=== PATIENT | female | born 1985 | race Caucasian/White ===

== ENCOUNTER 2017-08-12 23:44 | Emergency (ER) | payer OTHER ==
[~2017-08-12] VITALS: Ht 157.5 cm; Wt 111.1 kg
--- NOTE | 2017-08-13 00:22 | ED PSYCHIATRIC COMPLAINT ---
See Addendum History of Present Illness General Chief Complaint: Psychiatric Related Complaint Stated Complaint: SI Source: patient Exam Limitations: no limitations Vital Signs & Intake/Output Vital Signs & Intake/Output Vital Signs Date Time Temp Pulse Resp B/P B/P Pulse O2 O2 Flow FiO2 Mean Ox Delivery Rate 08/13 2217 98.7 94 16 154/73 100 Room Air 08/13 2028 98.4 87 18 161/74 99 Room Air 08/13 1859 98.3 98 18 124/72 98 Room Air 08/13 1522 98.4 08/13 1107 98.4 106 16 134/60 94 Room Air 08/13 0845 99.5 90 20 150/68 97 Room Air 08/13 0633 99.9 109 20 133/54 97 Room Air ED Intake and Output 08/14 0000 08/13 1200 Intake Total 0 Output Total Balance 0 Intake, Oral 0 Patient 245 lb Weight Triage Note: 31YO FEMALE TO TRIAGE W/CO FEELING DEPRESSED, SUICIDAL THOUGHTS OUR HER PARENTS ARE GOING ON A TRIP AND SHE DOESN'T WANT TO BE ALONE. STATES SHE IS [id number] W/MEDS. Triage Nurses Notes Reviewed? yes Onset: Gradual Duration: week(s):, waxing and waning Timing: recent history Severity: moderate, severe Associated Symptoms: suicidal ideation : No Patient currently breastfeeds: No HPI: 31yo woman h/o fibromyalgia, depression x many years, presents in company of a friend with worsening depression. The patient states that her parents are going on a trip for 10 days. "I am never alone... I got afraid." Her friend states that she verbalized becoming more suicidal. "She would get into a car in the garage and turn on the ignition." She denies drugs, but notes drinking alcohol while alone. She denies hallucinations, drug abuse. (Godwin SALINAS,Nicko Luna) Allergies Coded Allergies: bupropion (Mild, MAKES HER CRY 08/13/17) Reconcile Medications Amitriptyline HCl 10 MG TABLET 2 TAB PO QPM FIBROMYALGIA/VILLANUEVA (Reported) Calcium Carbonate/Vitamin D3 (Calcium 500 + D Tablet) (Unknown Strength) TABLET (Unknown Dose) PO DAILY SUPPLEMENT (Reported) Cholecalciferol (Vitamin D3) (Vitamin D) (Unknown Strength) CAPSULE (Unknown Dose) PO DAILY SUPPLEMENT (Reported) Cyclobenzaprine HCl 5 MG TABLET 1 TAB PO PRN MUSCLE SPASMS (Reported) Docusate Sodium (Colace) 100 MG CAPSULE 1 CAP PO BID STOOL SOFTENER (Reported ) Duloxetine HCl 60 MG CAPSULE.DR 1 CAP PO DAILY MENTAL HEALTH (Reported) Lisdexamfetamine Dimesylate (Vyvanse) 10 MG CAPSULE 1 CAP PO DAILY ADD/BINGE EATING (Reported) Multiple Vitamin (Multivitamins) 1 EACH TABLET 1 TAB PO DAILY SUPPLEMENT ( Reported) Naproxen 500 MG TABLET 1 TAB PO BID PRN PAIN/INFLAMMATION (Reported) Norethindrone-E.estradiol-Iron (Junel Fe 1 MG-20 Mcg Tablet) 1 MG-20 MCG (21)/75 MG (7) TABLET 1 TAB PO DAILY CONTROL (Reported) Psyllium Hydrophylic Muciloid (Metamucil Packet) (Unknown Strength) POWD.PACK 1 PAC PO BID GI (Reported) (Khushboo SALINAS,Bakari) Past History Travel History Traveled to [place] past 21 day No Medical History Any Pertinent Medical History? 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 No (Godwin SALINAS,Nicko Luna) Review of Systems Review of Systems Constitutional: Reports: no symptoms. EENTM: Reports: no symptoms. Respiratory: Reports: no symptoms. Cardiovascular: Reports: no symptoms. GI: Reports: no symptoms. Genitourinary: Reports: no symptoms. Musculoskeletal: Reports: no symptoms. Skin: Reports: no symptoms. Neurological/Psychological: Reports: no symptoms. Hematologic/Endocrine: Reports: no symptoms. Immunologic/Allergic: Reports: no symptoms. All Other Systems: Reviewed and Negative (Nicko Connelly MD) Physical Exam Physical Exam General Appearance: well developed/nourished, mild distress Head: atraumatic Eyes: Bilateral: PERRL, EOMI. Ears, Nose, Throat: normal pharynx, normal ENT inspection, hearing grossly normal Neck: normal inspection, supple Respiratory: normal breath sounds Cardiovascular: regular rate/rhythm Gastrointestinal: soft, non-tender Extremities: normal range of motion Neurological/Psychiatric: no motor/sensory deficits, anxious, oriented x 3, tearful Appearance/Memory/Insight: appropriate appearance Behavoir/Eye Contact/Speech: avoids eye contact, cooperative Thoughts/Hallucinations: no apparent hallucination Skin: intact, normal color, warm/dry SAD PERSONS SAD PERSONS Response Value Depression/Hopelessness? yes 2 Rational Thinking Loss? yes 2 Single//? yes 1 Organized/Serious Attempt yes 2 Social Support? has support 0 Total 7 SAD PERSONS Done? yes (Godwin SALINAS,Nicko Luna) Progress Differential Diagnosis: depression vs other. Plan of Care: Orders Procedure Date/time Status Continuous Observation Monitor 08/13 1900 Active Continuous Observation Monitor 08/13 1500 Active Continuous Observation Monitor 08/13 1100 Active Continuous Observation Monitor 08/13 0700 Active Current Medications Sig/Adam Start time Last Medication Dose Stop Time Status Admin Amitriptyline HCl 10 MG AT BEDTIME 08/13 2200 UNVr 08/13 (Elavil 10 MG Tablet) 2225 Duloxetine HCl 60 MG DAILY 08/13 1000 UNVr 08/13 (Cymbalta) 1003 Acetaminophen 650 MG Q4P PRN 08/13 0115 AC 08/13 (Tylenol) 1822 7:14 PM PATIENT SIGNED OUT TO ME BY DR NUNN. PENDING CRISIS REEVALUTION AND DISPOSITION. (Alyssa Foster MD) Hand-Off Endorsed To: Bakari Nunn MD Endorsed Time: 0700 Pending: consult, labs (Nicko Connelly MD) Hand-Off Endorsed To: Alyssa Foster MD Endorsed Time: 1900 Pending: other (Crisis re-eval in AM) (Bakari Nunn MD) Hand-Off Endorsed To: Bakari Nunn MD Endorsed Time: 0700 Pending: other (INPATIENT BED SEARCH) (Alyssa Foster MD) Departure Departure Disposition: STILL A PATIENT Condition: Stable Departure Forms: Customer Survey General Discharge Information (Nicko Connelly MD) Departure Clinical Impression Primary Impression: Depression with suicidal ideation (Bakari Nunn MD) Departure Clinical Impression Primary Impression: Depression with suicidal ideation (Bakari Nunn MD) Departure Clinical Impression Primary Impression: Depression with suicidal ideation (Bakari Nunn MD)
[2017-08-13 02:20] LABS: ABSOLUTE BASOPHIL COUNT 0 /CUMM (0.0-0.2); ABSOLUTE EOSINOPHIL COUNT 0.1 /CUMM (0.0-0.7); ABSOLUTE GRANULOCYTE CT 7.9 /CUMM (1.4-6.5); ABSOLUTE LYMPH COUNT 3.2 /CUMM (1.2-3.4); ABSOLUTE MONOCYTE COUNT 0.6 /CUMM (0.10-0.60); BASOPHIL % 0.4 % (0.0-2.0); EOSINOPHIL % 1.2 % (0-5); GRANULOCYTE % 66.7 % (42.2-75.2); HEMATOCRIT 38.2 % (37-47); MEAN CORPUSCULAR HGB 28.5 PG (27.0-31.0); MEAN CORPUSCULAR HGB CONC 33.6 G/DL (33.0-37.0); MEAN CORPUSCULAR VOLUME 84.7 FL (81.0-99.0); MEAN PLATELET VOLUME 7.8 FL (7.4-10.4); PLATELET COUNT 402 /CUMM (130-400); RBC DISTRIBUTION WIDTH 13.8 % (11.5-14.5); RED BLOOD CELL CT 4.51 /CUMM (4.20-5.40); WHITE BLOOD CELL COUNT 11.9 /CUMM (4.8-10.8)
--- NOTE | 2017-08-13 11:45 | ED PSYCH CRISIS CONSULTATION ---
See Addendum Crisis Consult Basic Assessment Date of Consult: 08/13/17 Responsible Person/Accompanied By: self/friend Renetat Insurance Authorization: Insurance #1: Insurance name: JOSE Phone number: Policy number: [id number] Group number: Authorization number: ED Provider: Patient's ED Provider: Nicko Connelly MD Primary Care Physician: Patient's PCP: Arti Le MD PCP's Current Psychiatrist: Dr Arti Le PCP Chief Complaint: Psychiatric Related Complaint Patient's Quote: not eating lately. feling tired for weeks Present Illness: Pt is a 31 yo female presenting a [facility] ED early this morning with depressive/SI thoughts. Pt is accompanied by her friend Gabby. Pt reports she lives with her parents and they are leaving today to visit her brother in [place] for 10 days. She reports chronic depression and reached out to her friend because she was afraid to be alone. She reportedly told her friend she had some SI but stated she wouldn't act on it. Her friend reports knowing she's been more down recently on not eating well so brought her to [place] for a psych eval. Pt reports on and off outpatient tx for depression since age 12 but no inpatient of suicide attempt history. She reports currently being involved in On -Line therapy and sees her PCP for Cymbalta prescription. She reports no feeling well past month which she states is typical as she has a seasonal depression component to her depression. She reports not eating well lately and feeling tired for weeks. She reports one episode of clawing her skin in HS otherwise no self-harm episodes. Pt reports prior anti-depressant trials of Prozac, Wellbutrin and celexa. Pt reports recent increase of etoh use (1 glass of wine after work) but denies non-prescribed substance use. She reports working past 7 yrs for [employer] and reports job cuts have made it stressful. She is currently taking college classes and broke off a relationship in the summer and says she is fine with that. She reports mother was diagnosed with cancer about 1 yr ago and that can be a stressor. She reports positive relationship with her parents. Pt presents as alert, cooperative, tearful, anxious and OX3. No presence of thought d/o. Pt insisting she is not a threat to harm self and wants to discharge home. Pt case reviewed with Dr Preciado. Pt will need to be h/o in ED for further observation due to recent SI statements and be reassessed tomorrow morning. Patient's Address: [place] [address] Other Phone Number: Who Do You Live With? Family Family/Informants Interviewed: collateral provided by pt friend Renetta Grady [phone]. She reports pt has a long hx of outpatient tx for depression. She reports no awareness of pt requiring inpatient or making a suicide attempt. She reports pt periodically gets more depressed and is currently having a lot of stress at work. Pt reported to her that she is having SI but wouldn't act on it. She reports if pt is discharged she can stay with pt while parents are away. Allergies - Coded Allergies: bupropion (Mild, MAKES HER CRY 08/13/17) Current Medications - Scheduled Medications Amitriptyline HCl 10 MG TABLET 2 TAB PO QPM FIBROMYALGIA/VILLANUEVA #60 (Reported) Entered as Reported by Shabnam Best on 08/13/17 1343 Calcium Carbonate/Vitamin D3 (Calcium 500 + D Tablet) (Unknown Strength) TABLET (Unknown Dose) PO DAILY SUPPLEMENT (Reported) Entered as Reported by Shabnam Best on 08/13/17 1347 Cholecalciferol (Vitamin D3) (Vitamin D) (Unknown Strength) CAPSULE (Unknown Dose) PO DAILY SUPPLEMENT (Reported) Entered as Reported by Shabnam Best on 08/13/17 1347 Docusate Sodium (Colace) 100 MG CAPSULE 1 CAP PO BID STOOL SOFTENER (Reported ) Entered as Reported by Shabnam Best on 08/13/17 1346 Duloxetine HCl 60 MG CAPSULE. 1 CAP PO DAILY MENTAL HEALTH #30 (Reported) Entered as Reported by Shabnam Best on 08/13/17 1342 Lisdexamfetamine Dimesylate (Vyvanse) 10 MG CAPSULE 1 CAP PO DAILY ADD/BINGE EATING #30 (Reported) Entered as Reported by Shabnam Best on 08/13/17 1345 Multiple Vitamin (Multivitamins) 1 EACH TABLET 1 TAB PO DAILY SUPPLEMENT ( Reported) Entered as Reported by Shabnam Best on 08/13/17 1347 Norethindrone-E.estradiol-Iron (Junel Fe 1 MG-20 Mcg Tablet) 1 MG-20 MCG (21)/75 MG (7) TABLET 1 TAB PO DAILY CONTROL #84 (Reported) Entered as Reported by Shabnam Best on 08/13/17 1345 Psyllium Hydrophylic Muciloid (Metamucil Packet) (Unknown Strength) POWD.PACK 1 PAC PO BID GI (Reported) Entered as Reported by Shabnam Best on 08/13/17 1346 Scheduled PRN Medications Cyclobenzaprine HCl 5 MG TABLET 1 TAB PO PRN MUSCLE SPASMS #30 (Reported) Entered as Reported by Shabnam Best on 08/13/17 1344 Naproxen 500 MG TABLET 1 TAB PO BID PRN PAIN/INFLAMMATION #60 (Reported) Entered as Reported by Shabnam Best on 08/13/17 1344 Laboratory Results: Laboratory Tests 08/13/17 0157: Urine Opiates Screen < 100.00, Methadone Screen 61, Barbiturate Screen < 60, Ur Phencyclidine Scrn < 6.00, Amphetamines Screen < 100, U Benzodiazepines Scrn < 85, Urine Cocaine Screen < 50, Urine Cannabis Screen < 5.00 08/13/17 0147: Anion Gap 16, Estimated GFR > 60, BUN/Creatinine Ratio 15.7, Glucose 141 H, Calcium 9.9, Total Bilirubin 0.3, AST 18, ALT 21, Alkaline Phosphatase 74, Total Protein 7.4, Albumin 4.3, Globulin 3.1, Albumin/Globulin Ratio 1.4, Total Beta HCG NEGATIVE, CBC w Diff NO MAN DIFF REQ, RBC 4.51, MCV 84.7, MCH 28.5, MCHC 33.6, RDW 13.8, MPV 7.8, Gran % 66.7, Lymphocytes % 27.0, Monocytes % 4.7, Eosinophils % 1.2, Basophils % 0.4, Absolute Granulocytes 7.9 H, Absolute Lymphocytes 3.2, Absolute Monocytes 0.6, Absolute Eosinophils 0.1, Absolute Basophils 0, Serum Alcohol < 10.0 (Errol Solorzano LCSW) Past History Past Medical History Neurological: FIBROMYALGIA EENT: NONE Cardiovascular: NONE Respiratory: NONE Gastrointestinal: NONE Hepatic: NONE Renal: NONE Musculoskeletal: NONE Psychiatric: depression Endocrine: NONE 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 Pt aware of treatment needs and attempts to utilize coping skills to lessen depressive episodes Psychiatric Treatment History Psych Treatment Psychiatric Treatment Yes Inpatient Treatment No Outpatient Treatment Yes Location of Treatment Prescribed Emmaalta by PCP. Engages in on-line therapy Reason for Treatment chronic depression Dates of Treatment since age 12 Response to Treatment pt reports about once a yr worsening symptoms but no inpatient or suicide attempt hx Diagnosis by History: Major Depressive D/O Substance Use/Abuse History Drug Use/Abuse Substances Used/Abused Yes Substance Used/Abused Alcohol Last Used yesterday How much used/taken 1 glass of wine How often almost daily For how long more recently Substance Abuse Treatment Substance Abuse Treatment Past Substance Abuse [place] No Inpatient Treatment No Outpatient Treatment No Comments: pt more active recent etoh use. Almost daily 1 glass of wine after work. Pt reports not use of non-prescribed substances. (Errol Solorzano LCSW) Current Mental Status Mental Status Orientation: Person, Place, Situation Affect: Anxious, Depressed Speech: WNL Neuro-vegetative: Appetite Decreased, Energy Decreased, Sleep Disturbance Appearance Appearance- Dress/Hygiene: pt in blue scrubs; tearful; sitting up on bed with good eye contact Behaviors Thought Process: WNL Thought Content: WNL Memory: WNL Insight: Fair SI/HI Risk Assessment Past Suicidal Ideation/Attempts Yes (chronic with no plan or intent) Current Suicidal Ideation/Att No Past Homicidal Ideation/Att: No Current Homicidal Ideation/Attempts No Degree of Intent: Thoughts/No Intent Danger To: Self Risk Factors: high anxiety/distress Lethality Ratin PTSD Checklist PTSD Done? patient declined ED Management Sitter: Yes Restraints: No (Errol Solorzano LCSW) DSM5/PS Stressors/Medical Prob Diagnosis' (DSM 5, Stressors, Medical): Unspecified Depression F32.9 fibramyalgia seasonal depression Current GAF: 35 Comments: pt reports chronic depression but with a seasonal component (tends to be worse in the winter). Pt reports not eating well, feeling tired, (Errol Solorzano LCSW) Departure Disposition Psych Medical Clearance Date: 08/13/17 Medically Cleared at: 0900 Time Started: 0900 Time Ended: 0945 Psychiatrist Consulted: Karen Huitron MD Date Disposition Established: 08/13/17 Time Disposition Established: 1100 Plan for Disposition - Modality: h/o for re-eval Rationale for Disposition: pt will be h/o in ED for further assessment/evaluation due to recent SI and unclear safety plan. Referrals Arti Le MD (PCP/Family) (Rashad CHAPPELL,Errol) Addendum Addendum Patient presented as tearful, anxious and depressed upon meeting for reevaluation. Patient stated she did not want her parents to be at hospital and requested this clinician tell them to leave and "go to [place]" as they planned. It should be noted that patient called her parents to tell them she was in the hospital for depression prior to them getting on their flight, which had them cancel their trip and come to the hospital. Per patient's parents, they believe it is in the patient's best interests to be admitted for an inpatient stay and to not return home to them. Spoke to Dr. Vargas who agrees that patient should be admitted for worsening depression, SI and sucicidal statements. A bed search will be conducted for patient. (Estela PAIZ,[place]) Addendum Crisis re-evaluated pt this shift. She continues to endorse SI and feelings of hopelessness and helplessness. She is aware that inpatient treatment is being pursues at this time. (Nicolasa CHAPPELL,Alessandra) Addendum Parents were in her room, and asked if there was anyway to get her to a hospital in [facility], I expressed to them, we would find her a bed in [place] first before we would have to look in another state, they understood , but did ask for it to be noted. This evening I reassessed pt, and she offers I don;t know how many parents didn' t know I've been telling them for weeks that I was depressed, I haven't been eating I thought they would know. Pt clarifies she is suicidal, although never been admitted to inpatient before, she states she thinks of her life ending often, and ways to . She states I freaked out my friend, all I asked her to do was check on me while my parents were away, and she brought me here, because I made her nervous, by telling about suicide. 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 (Kade CHAPPELL,Nazanin)
[2017-08-13] MEDS ORDERED: DULOXETINE HCL60 MG PO (13:42)
[2017-08-13] MEDS ORDERED: AMITRIPTYLINE H10 M2 PO (13:43)
[2017-08-13] MEDS ORDERED: CYCLOBENZAPRINE5 M2 PO (13:44)
[2017-08-13] MEDS ORDERED: NAPROXEN500 M2 PO (13:44)
[2017-08-13] MEDS ORDERED: JUNEL FE 1 MG-1 EACH PO (13:45)
[2017-08-13] MEDS ORDERED: VYVANSE10 M1 PO (13:45)
[2017-08-13] MEDS ORDERED: COLACE100 M1 PO (13:46)
[2017-08-13] MEDS ORDERED: METAMUCIL PACK3.4 GM PO (13:46)
[2017-08-13] MEDS ORDERED: CALCIUM 500 +1 EAC5 PO (13:47)
[2017-08-13] MEDS ORDERED: MULTIVITAMINS1 EAC9 PO (13:47)
[2017-08-13] MEDS ORDERED: VITAMIN D2000 UNIT PO (13:47)
--- NOTE | 2017-08-13 14:33 | ED PSYCHIATRIST/APRN CONSULT ---
Psychiatrist/EDI CONSULTANT ED Consult Assessment and Plan: 31 year old woman with a history of depression, chronic SI, bib friend due to statements that she wanted to kill self, no active plan, secondary to her parents going away for a ten day vacation without her. She had informed intake doc that she is never alone and was afraid, and that her friend stated patient thought about getting into a car and turning on the ignition. She is anxious, frustrated and panicky about being in the hospital room, stating she feels she is getting worse by being here. Stated that she has chronic suicidal thoughts/ intrusive images of different ways she could commit suicide, but that she has never acted on them. has had poor appetite, eating every other day only, and poor energy, more depression over the last week. Stated these episodes happened in the past and usually resolve. Upset that her parents might have to cancel their trip; appears also depressed since her mother was diagnosed with cancer. 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 Despite this, continues to have chronic SI, poor functioning overall. She stated that she contacted her friend to have someone accountable to her and for support. She is taking amitriptyline 20mg daily for fibromyalgia and depression, cymbals 60mg daily, vyvanse 10mg daily, in addition to some meds for constipation. States that she has an online therapist through [employer]. Had discussed with her that due to her recent suicidal statements, worsening depression, and inability to function without her parents, would not advise a discharge at this point; advised further evaluation of her mental status to determine whether inpatient admission would be necessary. Later on, parents arrived, stating they were not sure of her recent mental health treatment, that she has been manipulative and dramatic in the past and has been increasingly depressed. MSE: anxious young woman, obese, with fair grooming. She is anxious, mild psychomotor agitation, tearful. No tics or tremor. Speech is normal. Thought process is linear. Content is free of delusional statements, no active SI/HI and no hallucinations. Has passive intrusive images of different ways to which have not changed in the last day. Insight is fair, judgment fair. A: 31 year old woman with chronic SI, likely personality disorder traits in addition to depressive disorder sx, worsening with winter and with dx of cancer in her mother. She is tearful and anxious and minimizing her recent sx. She has risk factors associated with her active sx, in addition to some alcohol use (1 drink daily), and recent stressor of having parents leave. Plan: Address her acute risk factor of worsening depression and suicidal statements with inpatient admission. Continue her current medications. Address chronic risk factors with therapy, education, coping skill utilization once she is more stabilized.
--- NOTE | 2017-08-13 16:26 | ED PSY CRISIS COLLATERAL NOTE ---
Collateral Note Collateral Note Family/Inform/Kirk Contacts: Before speaking with the parent's the patient stated to this clinician that she did not want her parents to be here and to tell them "to go to [place]". Clinician proceeded to meet with patient's parents. Spoke to patient's parents Teresa & Luis Stanley (Home #[phone]; Cell. [phone]). Teresa states that the patient has been increasingly depressed since Teresa (her mother) was diagnosed with stage 4 cancer. Teresa states the patient has been increasingly depressed and "dramatic" since her parent's told her of this trip to [place] they were going to take today. Teresa and Luis stated that patient called them while they were at the airport to advise them that she was in the hospital. Luis stated "Why would she have called us if she did not want us to go?" The patient's parents stated that the patient can be "manipulative" and "dramatic." Teresa and Luis agree that now would be an ideal opportunity for patient to be admitted inpatient to stabilize. Teresa states she is not certain of the extent to which patient complies with her current treatment. Teresa is concerned of the patient's physical health issues and feels she needs a complete physical workup for her medical issues (endocrine related and others). Teresa and Luis concur that the patient should not be discharged to them and it would be beneficial to admit the patient for inpatient psychiatric care. Teresa put this clinician on phone with social science professor [facility] # [phone]. Avril suggests [facility] as a possible inpatient destination and believes that now is an opportune time for the patient to be admitted for an inpatient stay.
--- NOTE | 2017-08-14 15:12 | ED PSYCHIATRIST/APRN CONSULT ---
Psychiatrist/RECORD KEEPER ED Consult Assessment and Plan: Re-evaluated patient, she remains emotional, angry about being here, stated that she did not mean to sabotage her parents' trip, stated that "for the next 6 months I will hear about nothing else" and frustrated about being here. she admitted that similar things have happened with her, causing her and her parents to argue, saying "they always yell at me and I hear about it from everyone in the family" suggesting that this behavior has occured in the past as well. She stated that she was scared about being alone but did not want her parents to miss their vacation. She stated that an admisison would not be useful because she continues to have chronic SI even with support she has. She stated that nothing is going to help. Plan: Continues to be emotional, labile, with chronic SI and poor use of her coping skills. Neediness and emotional lability, signs of personality d/o traits are becoming more evident. Continue plan for IP admission.
--- NOTE | 2017-08-15 15:37 | ED PSY CRISIS COLLATERAL NOTE ---
See Addendum Collateral Note Collateral Note Family/Inform/Kirk Contacts: Crisis spoke to Indra Velazquez from [employer]. Pt was authorized for 4 days from 08/15/17-08/18/17. Auth #[id number]
--- NOTE | 2017-08-15 17:26 | ED PSYCHIATRIST/APRN CONSULT ---
Psychiatrist/NAVAL ARCHITECT SPECIALIST ED Consult Assessment and Plan: Crisis workers' notes reviewed. Dr. Huitron's notes reviewed. Case discussed with crisis workers. Patient seen for 4:40 p.m. She is a 31-year-old single white female with chronic depression. 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 She has been in the emergency room since presentation on 08/13/17. She called a friend about suicidal ideation. Parents were at the airport and canceled trip to [place]. Patient has several stressors, including mother has breast cancer metastatic to spine. Patient apparently had a breakup but she indicates she is over it. Receives outpatient therapy online with [facility]. See her PCP for medications. Mother reports that patient has been worse since . Patient reports she has had suicidal ideation since age 13. Affect is calm, depressed and tearful. Patient reports feeling incredibly hopeless right now. She feels she has no control over her life right now. Reports she has suicidal ideations and they don't ever go away. Denies homicidal ideation. Denies auditory and visual hallucinations and paranoid ideation. Insight and judgment are poor. There is no apparent thought disorder or delusions. Patient is oriented 3, but gives the date as August 15 or 2017. Cognition is grossly intact. Patient reports that she sleeps too much, as she has fibromyalgia. Reports appetite as been decreased for 1.5 weeks. Describes energy as tired all the time and indicates that isn't really unusual. IMPRESSION: Major depression. Fibromyalgia. The patient remains dangerous to self. While the patient and her family apparently wanted her to go to [facility], this will not be possible, as she is on a PEC. Patient has been accepted for admission to [facility]'s psychiatric unit tomorrow morning. Per family request, I ordered additional lab studies. I have ordered a reflex TSH as an add-on. I ordered glycohemoglobin, given random glucose in the 140s. Patient should continue on her Gely FE oral contraceptive pill.
[2017-08-16 05:49] VITALS: BP 100/59
== END 2017-08-16 07:40 | disposition short-term general hospital (02) ==
LOC: ERH 23:44
PROVIDERS: Pediatrics
DX: F32.9 Major depressive disorder, single episode, unspecified (principal); R45.851 Suicidal ideations; F10.10 Alcohol abuse, uncomplicated
CPT/HCPCS: 80307; G0463; G0480